=== PATIENT | female | born 1990 | race Caucasian/White ===

== ENCOUNTER 2020-08-21 20:15 | Emergency (ER) | payer OTHER, SELFPAY ==
[2020-08-21 20:22] VITALS: BP 110/78; PULSE 83; O2SAT 98
[2020-08-21 20:24] VITALS: BP 110/89; PULSE 101; RESP 19; TEMP 36.1; O2SAT 100; BMI 30.2
[2020-08-21 20:39] LABS: Glucose, Whole Blood 135 mg/dL (60-115)
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
--- NOTE | 2020-08-21 21:07 | ED.PSYCH ---
HPI - Psych General Chief Complaint: Psychiatric Symptoms Stated Complaint: CRISIS Time Seen by Provider: 08/21/20 23:17 Source: patient and EMS Mode of arrival: EMS Limitations: other ( Cognitive impairment) History of Present Illness HPI Narrative: 30-year-old female with past medical history of cognitive impairment, seizure disorder, psychiatric disorder presents from a retirement via EMS for evaluation. Patient has eloped from her home multiple times today, was seen at [facility] and had to N consult today. This is suspected to be behavioral, patient does not report suicidal ideation, homicidal ideation, and does not feel that she is in danger. She does not like her retirement, states that staff are mean to her, make fun of her name, call her names, and treat her poorly. She does not have any physical complaints at this time. MD complaint: feels depressed and anxiety Onset (ago): unknown Duration: intermittent History of same: Yes Relieving factors: none Context: significant life stressor Associated psychiatric symptoms: depression Associated symptoms: denies other symptoms Related Data Home Medications Medication Instructions Recorded Confirmed acetaminophen 650 mg PO Q4H PRN 08/21/20 08/21/20 albuterol sulfate [ProAir HFA] 2 puff INHALATION TID 08/21/20 08/21/20 atorvastatin 10 mg PO DAILY 08/21/20 08/21/20 clonazepam 0.5 mg PO BEDTIME 08/21/20 08/21/20 desmopressin 0.6 mg PO DAILY 08/21/20 08/21/20 divalproex 1,000 mg PO BEDTIME 08/21/20 08/21/20 divalproex 750 mg PO QAM 08/21/20 08/21/20 fluphenazine HCl 10 mg PO Q4H PRN 08/21/20 08/21/20 fluticasone propionate 1 spray INTRANASAL BID 08/21/20 08/21/20 fluticasone propionate [Flovent 2 puff INHALATION BID 08/21/20 08/21/20 HFA] folic acid 1 mg PO DAILY 08/21/20 08/21/20 loratadine 10 mg PO DAILY PRN 08/21/20 08/21/20 metformin 1 tab PO BID 08/21/20 08/21/20 olanzapine 10 mg PO BID 08/21/20 08/21/20 propranolol 1 tab PO BID 08/21/20 08/21/20 topiramate 100 mg PO BEDTIME 08/21/20 08/21/20 Allergies Allergy/AdvReac Type Severity Reaction Status Date / Time mushroom Allergy Unknown TURNS Unverified 11/10/19 17:38 ASHEN, FEET BREAK OUT (MUSHROOM FLAVOR) Seafood Allergy Mild RASH Uncoded 11/10/19 17:38 LOBSTER Allergy Unknown UNKNOWN Uncoded 11/10/19 17:38 Review of Systems Review of Systems: Constitutional: No Fever, No Chills ENT/Mouth: No Ear Pain, No Nasal Congestion, No sore throat Eyes: No Eye Pain, No Swelling, No Redness Cardiovascular: No Chest Pain, No SOB Respiratory: No Cough, No Sputum, No Dyspnea Gastrointestinal: No Nausea, No Vomiting, No Diarrhea, No Hematochezia, No Melena Genitourinary: No Dysuria, No Urinary Frequency, No Hematuria Musculoskeletal: No Myalgias Skin: No Skin Lesions, No rash Neuro: No Weakness, No Numbness, No Paresthesias, No Dizziness, No Headache Psych: positive Anxiety, positive Depression, No SI/HI Heme/Lymph: No Lymphadenopathy Endocrine: No Polyuria, No Polydipsia Yes all other systems are reviewed and are negative [facility] Past Medical History Attestation statement: The following information was validated with the patient. Source: old records reviewed Social History Social History Advance Directives: No Advance Directives Information Provided: No Patient : No Physical Exam Vital Signs: Vital Signs: Last Vital Signs Temp 97 F 08/21/20 20:24 Pulse 94 08/21/20 23:47 Resp 19 08/21/20 20:24 BP 114/76 08/21/20 23:47 Pulse Ox 100 08/21/20 20:24 Body Mass Index 30.2 Appearance: Alert. Oriented X to self and situation. Cognitive impairment. No acute distress. Eyes: Pupils equal, round and reactive to light. ENT: Pharynx normal. Neck: Normal inspection. Neck supple. CVS: Normal heart rate and rhythm. Pulses normal. Respiratory: No respiratory distress. Breath sounds normal. Abdomen: Soft and nontender. Skin: Skin warm and dry. Normal skin color. Normal skin turgor. Extremities: No lower extremity edema. Neuro: No motor deficit. No sensory deficit. Course Course Course Narrative: 30-year-old female presents from retirement, was seen by [facility] twice a day, does not like her retirement and has eloped multiple times. She does have a prior history of behavior like this, states that staff are bullying her, calling her names, and making her feel uncomfortable. Plan of care to be HN consult. Physician observation started at this time. MDM - Psych Differential Diagnosis Differential diagnosis: Likely acute psychosis, depression, acute anxiety and mood disorder Medical Records Attestation: I reviewed the patient's medical records. Lab Data Attestation: I reviewed the patient's lab results. Result diagrams: 08/21/20 23:24 08/21/20 23:24 Labs: Lab Results 08/21/20 08/21/20 08/21/20 Range/Units 20:34 20:48 20:48 WBC (4.8-10.8) X10*3/uL RBC (4.20-5.50) X10*6/uL Hgb (12.0-16.0) g/dl Hct (37-47) % MCV (80-98) fL MCH (27.0-33.0) pg MCHC (31.0-35.0) g/dl RDW (11.0-16.0) % Plt Count (160-400) X10*3/uL MPV (9.4-12.3) fL Immature Gran % (Auto) (0.0-0.4) % Neut % (Auto) (45-73) % Lymph % (Auto) (20-40) % [place] % (Auto) (2-11) % Eos % (Auto) (0-4) % Baso % (Auto) (0-2) % Lymph # (Auto) (1.2-4.9) X10*3/uL [place] # (Auto) (0.1-1.2) X10*3/uL Eos # (Auto) (0.0-0.4) X10*3/uL Baso # (Auto) (0.0-0.2) X10*3/uL Abs Immat Gran (auto) (0.00-0.03) X10*3/uL Absolute Neuts (auto) (2.0-8.3) X10*3/uL Absolute Nucleated RBC (0.0-0.012) X10*3/uL Nucleated RBC % (auto) (0.0-0.2) /100WBC Sodium (135-145) mmol/L Potassium (3.3-5.1) mmol/L Chloride (96-108) mmol/L Carbon Dioxide (22-29) mmol/L Anion Gap (12-20) BUN (9-16) mg/dL Creatinine (0.5-1.4) mg/dL Estim Creat Clear Calc Estimated GFR POC Glucose 135 H (60-115) mg/dL Random Glucose (60-115) mg/dL Calcium (8.4-10.2) mg/dL Urine Color Urine Appearance Urine pH (5.0-8.0) Ur Specific [place] (1.005-1.025) Urine Protein (NEG-TRACE) MG/DL Urine Glucose (UA) (NEG) MG/DL Urine Ketones (NEG) MG/DL Urine Blood (NEG) Urine Nitrite (NEG) Ur Leukocyte Esterase (NEG) Urine Test (NEGATIVE) Urine Opiates Screen Not Detected (Not Detect) Ur Barbiturates Screen Not Detected (Not Detect) Valproic Acid (50.0-100.0) mcg/mL Ur Phencyclidine Scrn Not Detected (Not Detect) Ur Amphetamines Screen Not Detected (Not Detect) U Benzodiazepines Scrn Not Detected (Not Detect) Urine Cocaine Screen Not Detected (Not Detect) U Marijuana (THC) Screen Not Detected (Not Detect) COVID-19 (SANDRO) Negative (Negative) COVID-19 Clin Com See Note 08/21/20 08/21/20 08/21/20 Range/Units 20:48 20:48 23:24 WBC 12.3 H (4.8-10.8) X10*3/uL RBC 4.25 (4.20-5.50) X10*6/uL Hgb 13.7 (12.0-16.0) g/dl Hct 41.4 (37-47) % MCV 97.4 (80-98) fL MCH 32.2 (27.0-33.0) pg MCHC 33.1 (31.0-35.0) g/dl RDW 12.1 (11.0-16.0) % Plt Count 229 (160-400) X10*3/uL MPV 10.1 (9.4-12.3) fL Immature Gran % (Auto) 0.9 H (0.0-0.4) % Neut % (Auto) 67.4 (45-73) % Lymph % (Auto) 22.0 (20-40) % [place] % (Auto) 8.0 (2-11) % Eos % (Auto) 1.4 (0-4) % Baso % (Auto) 0.3 (0-2) % Lymph # (Auto) 2.7 (1.2-4.9) X10*3/uL [place] # (Auto) 1.0 (0.1-1.2) X10*3/uL Eos # (Auto) 0.2 (0.0-0.4) X10*3/uL Baso # (Auto) 0.0 (0.0-0.2) X10*3/uL Abs Immat Gran (auto) 0.11 H (0.00-0.03) X10*3/uL Absolute Neuts (auto) 8.3 (2.0-8.3) X10*3/uL Absolute Nucleated RBC 0.000 (0.0-0.012) X10*3/uL Nucleated RBC % (auto) 0.0 (0.0-0.2) /100WBC Sodium (135-145) mmol/L Potassium (3.3-5.1) mmol/L Chloride (96-108) mmol/L Carbon Dioxide (22-29) mmol/L Anion Gap (12-20) BUN (9-16) mg/dL Creatinine (0.5-1.4) mg/dL Estim Creat Clear Calc Estimated GFR POC Glucose (60-115) mg/dL Random Glucose (60-115) mg/dL Calcium (8.4-10.2) mg/dL Urine Color YELLOW Urine Appearance CLEAR Urine pH 6.0 (5.0-8.0) Ur Specific [place] <= 1.005 (1.005-1.025) Urine Protein NEG (NEG-TRACE) MG/DL Urine Glucose (UA) NEG (NEG) MG/DL Urine Ketones NEG (NEG) MG/DL Urine Blood NEG (NEG) Urine Nitrite NEG (NEG) Ur Leukocyte Esterase NEG (NEG) Urine Test NEGATIVE (NEGATIVE) Urine Opiates Screen (Not Detect) Ur Barbiturates Screen (Not Detect) Valproic Acid (50.0-100.0) mcg/mL Ur Phencyclidine Scrn (Not Detect) Ur Amphetamines Screen (Not Detect) U Benzodiazepines Scrn (Not Detect) Urine Cocaine Screen (Not Detect) U Marijuana (THC) Screen (Not Detect) COVID-19 (SANDRO) (Negative) COVID-19 Clin Com 08/21/20 08/21/20 Range/Units 23:24 23:24 WBC (4.8-10.8) X10*3/uL RBC (4.20-5.50) X10*6/uL Hgb (12.0-16.0) g/dl Hct (37-47) % MCV (80-98) fL MCH (27.0-33.0) pg MCHC (31.0-35.0) g/dl RDW (11.0-16.0) % Plt Count (160-400) X10*3/uL MPV (9.4-12.3) fL Immature Gran % (Auto) (0.0-0.4) % Neut % (Auto) (45-73) % Lymph % (Auto) (20-40) % [place] % (Auto) (2-11) % Eos % (Auto) (0-4) % Baso % (Auto) (0-2) % Lymph # (Auto) (1.2-4.9) X10*3/uL [place] # (Auto) (0.1-1.2) X10*3/uL Eos # (Auto) (0.0-0.4) X10*3/uL Baso # (Auto) (0.0-0.2) X10*3/uL Abs Immat Gran (auto) (0.00-0.03) X10*3/uL Absolute Neuts (auto) (2.0-8.3) X10*3/uL Absolute Nucleated RBC (0.0-0.012) X10*3/uL Nucleated RBC % (auto) (0.0-0.2) /100WBC Sodium 145 (135-145) mmol/L Potassium 4.1 (3.3-5.1) mmol/L Chloride 110 H (96-108) mmol/L Carbon Dioxide 28 (22-29) mmol/L Anion Gap 11 L (12-20) BUN 15 (9-16) mg/dL Creatinine 0.97 (0.5-1.4) mg/dL Estim Creat Clear Calc 85.1 Estimated GFR > 60 POC Glucose (60-115) mg/dL Random Glucose 159 H (60-115) mg/dL Calcium 10.3 H (8.4-10.2) mg/dL Urine Color Urine Appearance Urine pH (5.0-8.0) Ur Specific [place] (1.005-1.025) Urine Protein (NEG-TRACE) MG/DL Urine Glucose (UA) (NEG) MG/DL Urine Ketones (NEG) MG/DL Urine Blood (NEG) Urine Nitrite (NEG) Ur Leukocyte Esterase (NEG) Urine Test (NEGATIVE) Urine Opiates Screen (Not Detect) Ur Barbiturates Screen (Not Detect) Valproic Acid 47.1 L (50.0-100.0) mcg/mL Ur Phencyclidine Scrn (Not Detect) Ur Amphetamines Screen (Not Detect) U Benzodiazepines Scrn (Not Detect) Urine Cocaine Screen (Not Detect) U Marijuana (THC) Screen (Not Detect) COVID-19 (SANDRO) (Negative) COVID-19 Clin Com Discharge Plan Discharge Prescriptions: No Action acetaminophen 325 mg tablet 650 mg PO Q4H PRN (Reason: Pain) RF: 0 divalproex 250 mg tablet,delayed release (DR/EC) 750 mg PO QAM RF: 0 atorvastatin 10 mg tablet 10 mg PO DAILY RF: 0 fluphenazine HCl 10 mg tablet 10 mg PO Q4H PRN (Reason: Agitation) RF: 0 desmopressin 0.2 mg tablet 0.6 mg PO DAILY RF: 0 olanzapine 10 mg tablet 10 mg PO BID RF: 0 divalproex 500 mg tablet,delayed release (DR/EC) 1,000 mg PO BEDTIME RF: 0 metformin 1,000 mg tablet 1 tab PO BID RF: 0 Flovent HFA 44 mcg/actuation HFA aerosol inhaler 2 puff inhalation BID RF: 0 folic acid 1 mg tablet 1 mg PO DAILY RF: 0 topiramate 100 mg tablet 100 mg PO BEDTIME RF: 0 loratadine 10 mg tablet 10 mg PO DAILY PRN (Reason: Allergic Symptoms) RF: 0 clonazepam 0.5 mg tablet 0.5 mg PO BEDTIME RF: 0 propranolol 60 mg tablet 1 tab PO BID RF: 0 fluticasone propionate 50 mcg/actuation spray,suspension 1 spray intranasal BID RF: 0 albuterol sulfate [ProAir HFA] 90 mcg/actuation HFA aerosol inhaler 2 puff inhalation TID RF: 0
[2020-08-21 21:18] LABS: COVID-19 Test Negative (Negative); IDNOW Serial# 08D9AD1C
[2020-08-21 21:31] LABS: Amphetamine Screen Urine Not Detected (Not Detect); Barbiturates, Urine Not Detected (Not Detect); Benzodiazepines Screen Urine Not Detected (Not Detect); Cannabinoid Screen Urine Not Detected (Not Detect); Cocaine Screen Urine Not Detected (Not Detect); Opiate Screen Urine Not Detected (Not Detect); Phencyclidine Screen Urine Not Detected (Not Detect)
[2020-08-21 22:51] LABS: Appearance Urine CLEAR; Color Urine YELLOW; Glucose Urine UA NEG (NEG); Leukocyte Esterase Urine NEG (NEG); Nitrite Urine NEG (NEG); Specific Gravity - Urine <= 1.005 (1.005-1.025); Urine Blood NEG (NEG); Urine Ketones NEG (NEG); Urine Protein NEG (NEG-TRACE)
[2020-08-21 22:53] LABS: UPreg QC Valid YES; Urine Pregnancy NEGATIVE (NEGATIVE)
[2020-08-21 23:31] LABS: Basophils Percent Auto 0.3 % (0-2); Eosinophils Absolute Auto 0.2 X10*3/uL (0.0-0.4); Eosinophils Percent Auto 1.4 % (0-4); Hematocrit 41.4 % (37-47); Hemoglobin 13.7 g/dl (12.0-16.0); Imm Gran Abs Auto 0.11 X10*3/uL (0.00-0.03); Imm Gran Pct Auto 0.9 % (0.0-0.4); Lymphocytes Absolute Auto 2.7 X10*3/uL (1.2-4.9); Mean Corpuscular HGB Conc 33.1 g/dl (31.0-35.0); Mean Corpuscular Hemoglobin 32.2 pg (27.0-33.0); Mean Corpuscular Volume 97.4 fL (80-98); Mean Platelet Volume 10.1 fL (9.4-12.3); Neutrophils Absolute Auto 8.3 X10*3/uL (2.0-8.3); Neutrophils Percent Auto 67.4 % (45-73); Platelet Count 229 X10*3/uL (160-400); Red Blood Count 4.25 X10*6/uL (4.20-5.50); Red Cell Distribution Width 12.1 % (11.0-16.0); White Blood Count 12.3 X10*3/uL (4.8-10.8)
[2020-08-21 23:32] LABS: MANUAL DIFF FLAG NO
[2020-08-21 23:47] VITALS: BP 114/76; PULSE 94
[2020-08-21] MEDS: Divalproex Sodium 500 MG TABLET.DR 1000 MG PO (23:47)
[2020-08-21] MEDS: Topiramate 100 MG TABLET PO (23:47)
[2020-08-21] MEDS: Propranolol HCL 20 MG TABLET 60 MG PO (23:47)
[2020-08-21] MEDS: OLANZapine 10 MG TABLET PO (23:47)
[2020-08-21] MEDS: clonazePAM 0.5 MG TABLET PO (23:47)
[2020-08-21 23:59] LABS: Anion Gap 11 (12-20); Blood Urea Nitrogen 15 mg/dL (9-16); Calcium 10.3 mg/dL (8.4-10.2); Carbon Dioxide 28 mmol/L (22-29); Chloride 110 mmol/L (96-108); Creatinine Clr Calc Pharmacy 85.1; Estimated Glomerular Filt Rate > 60; Glucose Random 159 mg/dL (60-115); Potassium 4.1 mmol/L (3.3-5.1); Sodium 145 mmol/L (135-145)
[2020-08-22 00:04] LABS: Valproate 47.1 mcg/mL (50.0-100.0)
--- NOTE | 2020-08-22 01:09 | PC.NURSE ---
Patient appears sleeping at this time, no distress observed/reported, patient was compliant with her HS PO medication, patient was made aware of her depakote level which was 47.1, N referral completed via smart-sheet, called and spoke with Deysi confirmed receipt of referral, patient will be seen in the morning, will continue to monitor.
[2020-08-22 01:23] VITALS: BP 114/76; PULSE 94; RESP 16; TEMP 36.6; O2SAT 100
--- NOTE | 2020-08-22 05:35 | PC.NURSE ---
Patient slept through the night, patient was up x 2 for bathroom use and back, patient was incontinence of bladder x2, patient will be seeing by N in the morning, will continue to monitor.
[2020-08-22 07:17] LABS: Glucose, Whole Blood 97 mg/dL (60-115)
[2020-08-22 07:30] VITALS: TEMP 36.2
[2020-08-22 07:59] VITALS: BP 102/45; PULSE 74; RESP 16; TEMP 36.2; O2SAT 97
--- NOTE | 2020-08-22 08:05 | PC.NURSE ---
PT SHOWERED. STAYING OUT IN COMMON AREA. AWAITING BHN CONSULT
[2020-08-22 08:36] VITALS: BP 102/45; PULSE 74
[2020-08-22] MEDS: OLANZapine 10 MG TABLET PO ×2 (08:36→21:31)
[2020-08-22] MEDS: Propranolol HCL 20 MG TABLET 60 MG PO ×2 (08:36→21:34)
[2020-08-22] MEDS: Atorvastatin Calcium 10 MG TABLET PO (08:37)
[2020-08-22] MEDS: polyethylene glycoL 3350 17 GM POWD.PACK PO (08:37)
[2020-08-22] MEDS: Folic Acid 1 MG TABLET PO (08:37)
[2020-08-22] MEDS: metFORMIN HCl 1,000 MG TABLET 1000 MG PO ×2 (08:37→19:32)
[2020-08-22] MEDS: Divalproex Sodium 250 MG TABLET.DR 750 MG PO (08:37)
[2020-08-22] MEDS: Albuterol Sulfate 90 MCG 8 GM INHALER 2 PUFF INHALE ×3 (08:38→21:41)
[2020-08-22] MEDS: Fluticasone Propionate Nasal 16 GM SPRAY 1 SPRAY NOSTRIL-B ×2 (09:12→21:41)
[2020-08-22] MEDS: Fluticasone Propionate 100 MCG BLST.W.DEV 1 PUFF INHALE (09:12)
[2020-08-22] MEDS: Desmopressin Acetate 0.2 MG TABLET 0.6 MG PO (09:12)
--- NOTE | 2020-08-22 11:41 | PC.NURSE ---
Report received. Pt currently watching TV in the common area. No complaints at this time, calm, waiting to be seen by N
--- NOTE | 2020-08-22 12:42 | PC.NURSE ---
Spoke with Vernell at [facility]. A clinician should be available to assess pt between 1400 and 1500.
[2020-08-22] MEDS: Acetaminophen 325 MG TABLET 650 MG PO (17:49)
[2020-08-22 18:24] LABS: Glucose, Whole Blood 147 mg/dL (60-115)
[2020-08-22] MEDS: Topiramate 100 MG TABLET PO (21:31)
[2020-08-22] MEDS: clonazePAM 0.5 MG TABLET PO (21:31)
[2020-08-22] MEDS: Divalproex Sodium 500 MG TABLET.DR 1000 MG PO (21:31)
[2020-08-22 21:34] VITALS: BP 115/77; PULSE 79
--- NOTE | 2020-08-22 21:34 | MHC.CARE ---
JAQUANN came to evaluate pt. Pt will remain in the ED for an JAMEEL F/U. NIKKI was unable to get a hold of DDS at this time.
--- NOTE | 2020-08-22 22:00 | PC.NURSE ---
Patient compliant with her HS PO medication, intermittently reporting that she does't want to go back to her residential if we discharge her she will come back, NIKKI met with her for assessment, disposition follow up in the morning because clinician couldn't get hold of her DDS staff, patient made aware seems happy, VSS, appetite good, elimination intact, will continue to monitor.
--- NOTE | 2020-08-23 06:23 | PC.NURSE ---
Patient slept through the night, patient was up x2 for bathroom use and back, VSS, no distress observed/reported, no behavioral concerns, patient is JAMEEL f/u with BHN this morning, will continue to monitor.
[2020-08-23 06:28] VITALS: BP 104/68; PULSE 72; RESP 16; TEMP 36.6; O2SAT 97
[2020-08-23 07:16] LABS: Glucose, Whole Blood 139 mg/dL (60-115)
--- NOTE | 2020-08-23 07:17 | PC.NURSE ---
patient appears to remain at rest at present, respirations are even and unlabored, patient appears in no distress.
[2020-08-23 07:40] VITALS: BP 85/45; PULSE 69; RESP 16; TEMP 36.6; O2SAT 97
[2020-08-23 08:48] VITALS: BP 109/76; PULSE 85; RESP 14; O2SAT 95
[2020-08-23] MEDS: Fluticasone Propionate 100 MCG BLST.W.DEV 1 PUFF INHALE (09:41)
[2020-08-23] MEDS: metFORMIN HCl 1,000 MG TABLET 1000 MG PO ×2 (09:41→18:06)
[2020-08-23] MEDS: Atorvastatin Calcium 10 MG TABLET PO (09:42)
[2020-08-23] MEDS: Desmopressin Acetate 0.2 MG TABLET 0.6 MG PO (09:42)
[2020-08-23] MEDS: Albuterol Sulfate 90 MCG 8 GM INHALER 2 PUFF INHALE ×3 (09:42→19:57)
[2020-08-23 09:43] VITALS: BP 109/76; PULSE 85
[2020-08-23] MEDS: Fluticasone Propionate Nasal 16 GM SPRAY 1 SPRAY NOSTRIL-B ×2 (09:43→19:57)
[2020-08-23] MEDS: OLANZapine 10 MG TABLET PO ×2 (09:43→19:41)
[2020-08-23] MEDS: Propranolol HCL 20 MG TABLET 60 MG PO ×2 (09:43→19:42)
[2020-08-23] MEDS: Folic Acid 1 MG TABLET PO (09:43)
[2020-08-23] MEDS: Divalproex Sodium 250 MG TABLET.DR 750 MG PO (09:43)
[2020-08-23] MEDS: Acetaminophen 325 MG TABLET 650 MG PO (15:12)
[2020-08-23] MEDS: fluPHENAZine HCl 5 MG TABLET 10 MG PO ×2 (15:25→19:41)
[2020-08-23 17:13] LABS: Glucose, Whole Blood 136 mg/dL (60-115)
[2020-08-23] MEDS: Topiramate 100 MG TABLET PO (19:41)
[2020-08-23 19:42] VITALS: BP 118/91; PULSE 82
[2020-08-23] MEDS: Divalproex Sodium 500 MG TABLET.DR 1000 MG PO (19:42)
--- NOTE | 2020-08-23 19:53 | PC.NURSE ---
BHN came here for reassessment, were unable to get hold DDS staff, disposition is JAMEEL f/u in the morning, patient reported [facility] wanted her HS medication administered early/provider notified/medication administered 20 minutes earlier than scheduled time, will continue to monitor.
[2020-08-23] MEDS: clonazePAM 0.5 MG TABLET PO (20:00)
[2020-08-23] MEDS: diphenhydrAMINE HCL 25 MG TABLET 50 MG PO (22:10)
[2020-08-24 06:14] VITALS: BP 102/64; PULSE 66; RESP 16; TEMP 36.7; O2SAT 96
--- NOTE | 2020-08-24 06:23 | PC.NURSE ---
Patient slept through the night, just woke up and had bladder incontinence episode, bed and body fully saturated with urine, currently in shower, bed completely changed, patient is calm and quiet, in good behavioral control, disposition is F/U with BHN, will continue to monitor.
--- NOTE | 2020-08-24 07:23 | PC.NURSE ---
patient was up and about in milieu fairly early, patient expressed some displeasure i believe at the discussion of potential dc. patient expressed want to stay here . t/w explained this hospital might not be the outcome.
[2020-08-24 07:45] VITALS: BP 105/72; PULSE 75; RESP 17; TEMP 36.1
[2020-08-24] MEDS: Albuterol Sulfate 90 MCG 8 GM INHALER 2 PUFF INHALE ×3 (08:17→20:52)
[2020-08-24 08:18] VITALS: BP 105/72; PULSE 75
[2020-08-24] MEDS: Fluticasone Propionate Nasal 16 GM SPRAY 1 SPRAY NOSTRIL-B ×2 (08:18→20:52)
[2020-08-24] MEDS: metFORMIN HCl 1,000 MG TABLET 1000 MG PO ×2 (08:18→17:02)
[2020-08-24] MEDS: Divalproex Sodium 250 MG TABLET.DR 750 MG PO (08:18)
[2020-08-24] MEDS: OLANZapine 10 MG TABLET PO ×2 (08:18→20:49)
[2020-08-24] MEDS: Folic Acid 1 MG TABLET PO (08:18)
[2020-08-24] MEDS: Propranolol HCL 20 MG TABLET 60 MG PO ×2 (08:18→20:49)
[2020-08-24] MEDS: Fluticasone Propionate 100 MCG BLST.W.DEV 1 PUFF INHALE (08:18)
[2020-08-24] MEDS: fluPHENAZine HCl 5 MG TABLET 10 MG PO ×2 (09:04→13:30)
[2020-08-24] MEDS: Atorvastatin Calcium 10 MG TABLET PO (09:26)
[2020-08-24] MEDS: Desmopressin Acetate 0.2 MG TABLET 0.6 MG PO (09:51)
[2020-08-24] MEDS: Acetaminophen 325 MG TABLET 650 MG PO ×2 (11:23→15:43)
--- NOTE | 2020-08-24 16:50 | PC.NURSE ---
since about 3 pm patient has had some intrusive behaviour where patient speaks at staff saying she thinks staff knows of her dc plan or time and [id number]
--- NOTE | 2020-08-24 19:52 | MHC.CARE ---
CARE team contacted [facility], systems applications programming lead at [phone]. [facility] reported they are open to taking her back however report that she will regress because she typically will harm herself to get back to the hospital. CARE team and pod nurse are facilitating for pt to return back to the fci as BHN's disposition is D/C.
[2020-08-24 20:16] VITALS: BP 114/74; PULSE 84; TEMP 36; O2SAT 99
[2020-08-24] MEDS: clonazePAM 0.5 MG TABLET PO ×2 (20:45→20:49)
[2020-08-24] MEDS: Topiramate 100 MG TABLET PO ×2 (20:45→20:49)
[2020-08-24] MEDS: clonazePAM 1 MG TABLET PO ×2 (20:45→20:49)
[2020-08-24] MEDS: Divalproex Sodium 500 MG TABLET.DR 1000 MG PO ×2 (20:45→20:49)
[2020-08-24 20:49] VITALS: BP 114/74; PULSE 77
--- NOTE | 2020-08-24 21:32 | PC.NURSE ---
Followed up with [facility] of patient's disposition, per [facility] patient's disposition is d/c back to residential, notified provider however per provider [facility] never updated patient's disposition, residential called, spoke with Za Aguiar, reported they were waiting for patient since 1500 and no one called them, care team made aware, charge nurse notified, plan is to d/c patient to residential, patient made aware, was not happy, will continue to monitor.
== END 2020-08-24 22:52 | disposition home or self-care (01) ==
PROVIDERS: Nurse Practitioner Family; Emergency Provider Internal Medicine
DX: F41.9 Anxiety disorder, unspecified (principal); F32.9 Major depressive disorder, single episode, unspecified; I95.9 Hypotension, unspecified; G40.909 Epilepsy, unspecified, not intractable, without status epilepticus; Z79.899 Other long term (current) drug therapy; Z20.822 Contact with and (suspected) exposure to COVID-19
CPT/HCPCS: 36415; 80048; 80164; 80307; 81003; 81025; 82947; 85025; 87635; 99285; Q0163

== ENCOUNTER 2020-10-01 03:53 | Emergency (ER) | payer OTHER, SELFPAY ==
--- NOTE | 2020-10-01 03:57 | ED.PSYCH ---
HPI - Psych General Chief Complaint: General Medical Stated Complaint: HI Time Seen by Provider: 10/01/20 03:57 Source: patient and EMS Mode of arrival: EMS Limitations: no limitations History of Present Illness HPI Narrative: doesn't want to go to the skilled nursing was just seen at [facility] for the same. States the staff make fun of her and she doesn't want to live there anymore. Denies SI/HI states she wouldn't hurt anyone at the skilled nursing MD complaint: feels depressed Onset (ago): week(s) Duration: constant History of same: Yes Relieving factors: none Exacerbating factors: other (skilled nursing environment) Associated psychiatric symptoms: depression Associated symptoms: denies other symptoms Treatments prior to arrival: none Related Data Home Medications Medication Instructions Recorded Confirmed acetaminophen 325 mg tablet 650 mg PO Q4H PRN 08/21/20 08/21/20 albuterol sulfate 90 mcg/actuation 2 puff INHALATION TID 08/21/20 08/21/20 aerosol inhaler (ProAir HFA) atorvastatin 10 mg tablet 10 mg PO DAILY 08/21/20 08/21/20 clonazepam 0.5 mg tablet 0.5 mg PO BEDTIME 08/21/20 08/21/20 desmopressin 0.2 mg tablet 0.6 mg PO DAILY 08/21/20 08/21/20 divalproex 250 mg tablet,delayed 750 mg PO QAM 08/21/20 08/21/20 release divalproex 500 mg tablet,delayed 1,000 mg PO BEDTIME 08/21/20 08/21/20 release fluphenazine HCl 10 mg tablet 10 mg PO Q4H PRN 08/21/20 08/21/20 fluticasone propionate 44 2 puff INHALATION BID 08/21/20 08/21/20 mcg/actuation HFA aerosol inhaler (Flovent HFA) fluticasone propionate 50 1 spray INTRANASAL BID 08/21/20 08/21/20 mcg/actuation nasal spray,suspension folic acid 1 mg tablet 1 mg PO DAILY 08/21/20 08/21/20 loratadine 10 mg tablet 10 mg PO DAILY PRN 08/21/20 08/21/20 metformin 1,000 mg tablet 1 tab PO BID 08/21/20 08/21/20 olanzapine 10 mg tablet 10 mg PO BID 08/21/20 08/21/20 propranolol 60 mg tablet 1 tab PO BID 08/21/20 08/21/20 topiramate 100 mg tablet 100 mg PO BEDTIME 08/21/20 08/21/20 Allergies Allergy/AdvReac Type Severity Reaction Status Date / Time mushroom Allergy Unknown TURNS Unverified 11/10/19 17:38 ASHEN, FEET BREAK OUT (MUSHROOM FLAVOR) Seafood Allergy Mild RASH Uncoded 11/10/19 17:38 LOBSTER Allergy Unknown UNKNOWN Uncoded 11/10/19 17:38 Review of Systems Review of Systems: Constitutional : No Fever, No Chills ENT/Mouth : No Ear Pain, No Nasal Congestion, No sore throat Eyes: No Eye Pain, No Swelling, No Redness Cardiovascular : No Chest Pain, No SOB Respiratory : No Cough, No Sputum, No Dyspnea Gastrointestinal : No Nausea, No Vomiting, No Diarrhea, No Hematochezia, No Melena Genitourinary : No Dysuria, No Urinary Frequency, No Hematuria Musculoskeletal : No Myalgias Skin : No Skin Lesions, No rash Neuro : No Weakness, No Numbness, No Paresthesias, No Dizziness, No Headache Psych : positive Anxiety, positive Depression, no SI/HI Heme/Lymph: No Lymphadenopathy Endocrine : No Polyuria, No Polydipsia All other systems reviewed and are negative [facility] Past Medical History Attestation statement: The following information was validated with the patient. Medical History Asthma Autism Bipolar 1 disorder Diabetes Hyperlipidemia Mental health disorder Schizophrenia Social History Social History (Updated 10/01/20 @ 04:10 by Mckenna Oneil DO) Patient Tobacco Use Status: Never used Tobacco Use of substances other than those prescribed or required for medical reasons: No Advance Directives: No Patient : No Physical Exam Vital Signs: Vital Signs: Last Vital Signs Temp 98.1 F 10/01/20 04:08 Pulse 88 10/01/20 04:08 Resp 16 10/01/20 04:08 BP 110/79 10/01/20 04:08 Pulse Ox 97 10/01/20 04:08 Body Mass Index 28.4 Appearance: Alert. Oriented X3. No acute distress. Eyes: Pupils equal, round and reactive to light. ENT: Pharynx normal. Neck: Normal inspection. Neck supple. CVS: Normal heart rate and rhythm. Pulses normal. Respiratory: No respiratory distress. Breath sounds normal. Abdomen: Soft and nontender. Skin: Skin warm and dry. Normal skin color. Normal skin turgor. Extremities: No lower extremity edema. No calf ttp Neuro: Oriented X 3. No motor deficit. No sensory deficit. Psych: no SI/HI. pos anxiety/depression Course Course Course Narrative: signed out pending CARE team input and safe DC MDM - Psych MDM Narrative Medical decision making narrative: 30 yo female with schizophrenia/bipolar comes in with c/o not liking her skilled nursing she notes that she doesn't want to live there and they make fun of her - no SI/HI, will involve CARE team for safe discharge Discharge Plan Discharge Clinical Impression: Anxiety Instructions: Anxiety (ED) Additional Instructions: return to ED for any worsening symptoms or concerns Prescriptions: No Action acetaminophen 325 mg tablet 650 mg PO Q4H PRN (Reason: Pain) RF: 0 divalproex 250 mg tablet,delayed release (DR/EC) 750 mg PO QAM RF: 0 atorvastatin 10 mg tablet 10 mg PO DAILY RF: 0 fluphenazine HCl 10 mg tablet 10 mg PO Q4H PRN (Reason: Agitation) RF: 0 desmopressin 0.2 mg tablet 0.6 mg PO DAILY RF: 0 olanzapine 10 mg tablet 10 mg PO BID RF: 0 divalproex 500 mg tablet,delayed release (DR/EC) 1,000 mg PO BEDTIME RF: 0 metformin 1,000 mg tablet 1 tab PO BID RF: 0 Flovent HFA 44 mcg/actuation HFA aerosol inhaler 2 puff inhalation BID RF: 0 folic acid 1 mg tablet 1 mg PO DAILY RF: 0 topiramate 100 mg tablet 100 mg PO BEDTIME RF: 0 loratadine 10 mg tablet 10 mg PO DAILY PRN (Reason: Allergic Symptoms) RF: 0 clonazepam 0.5 mg tablet 0.5 mg PO BEDTIME RF: 0 propranolol 60 mg tablet 1 tab PO BID RF: 0 fluticasone propionate 50 mcg/actuation spray,suspension 1 spray intranasal BID RF: 0 albuterol sulfate [ProAir HFA] 90 mcg/actuation HFA aerosol inhaler 2 puff inhalation TID RF: 0
[2020-10-01 04:08] VITALS: BP 110/79; PULSE 88; RESP 16; TEMP 36.7; O2SAT 97; BMI 28.4
--- NOTE | 2020-10-01 04:47 | PC.NURSE ---
PT TO [facility] AMBULANCE AFTER REFUSING TO GO TO SENIOR LIVING. PT ARRIVES ALERT, RESPIRATIONS EASY N/L. SKIN W/D. AWAITING FOR FURTHER ORDERS. WILL CONTINUE TO MONITOR PT.
[2020-10-01] MEDS: Acetaminophen 325 MG TABLET 650 MG PO (05:33)
[2020-10-01 09:02] LABS: MANUAL DIFF FLAG NO
--- NOTE | 2020-10-01 09:02 | PC.NURSE ---
eri (care team) is at bedside with pt, pt aware of plan of care
[2020-10-01 09:04] LABS: Appearance Urine CLEAR; Color Urine YELLOW; Glucose Urine UA NEG (NEG); Leukocyte Esterase Urine NEG (NEG); Nitrite Urine NEG (NEG); PH 7.5 (5.0-8.0); Urine Blood NEG (NEG); Urine Ketones NEG (NEG); Urine Protein NEG (NEG-TRACE)
[2020-10-01 09:05] LABS: Basophils Percent Auto 0.3 % (0-2); Eosinophils Absolute Auto 0.3 X10*3/uL (0.0-0.4); Eosinophils Percent Auto 3.6 % (0-4); Imm Gran Abs Auto 0.12 X10*3/uL (0.00-0.03); Imm Gran Pct Auto 1.3 % (0.0-0.4); Lymphocytes Percent Auto 33.9 % (20-40); Mean Corpuscular HGB Conc 34.2 g/dl (31.0-35.0); Mean Corpuscular Hemoglobin 32.7 pg (27.0-33.0); Mean Corpuscular Volume 95.7 fL (80-98); Mean Platelet Volume 10.3 fL (9.4-12.3); Monocytes Absolute Auto 0.9 X10*3/uL (0.1-1.2); Monocytes Percent Auto 9.9 % (2-11); Neutrophils Absolute Auto 4.6 X10*3/uL (2.0-8.3); Platelet Count 266 X10*3/uL (160-400); Red Blood Count 3.97 X10*6/uL (4.20-5.50); Red Cell Distribution Width 11.9 % (11.0-16.0)
--- NOTE | 2020-10-01 09:14 | MHC.CARE ---
Addendum entered by Tena Bob LCSW 10/01/20 11:28: Plan for PT to be assessed by [facility] Crisis Original Note: CARE Team met with Pt who is declining to return to her fci. CARE Team explained the limitations of changing residences while in the ED. CARE Team encouraged Pt to speak with her employment evaluator/case manager and fci staff to address her concerns.
[2020-10-01 09:32] LABS: Ethanol < 10 mg/dL
[2020-10-01 09:32] LABS: Amphetamine Screen Urine Not Detected (Not Detect); Barbiturates, Urine Not Detected (Not Detect); Benzodiazepines Screen Urine Not Detected (Not Detect); Cannabinoid Screen Urine Not Detected (Not Detect); Cocaine Screen Urine Not Detected (Not Detect); Opiate Screen Urine Not Detected (Not Detect); Phencyclidine Screen Urine Not Detected (Not Detect)
[2020-10-01 09:38] LABS: Alanine Aminotransferase 12 U/L (0-31); Albumin Level 3.5 g/dL (3.5-5.0); Alkaline Phosphatase 57 U/L (39-117); Anion Gap 11 (12-20); Aspartate Amino Transferase 12 U/L (5-31); Bilirubin Total 0.4 mg/dL (0.0-1.0); Blood Urea Nitrogen 8 mg/dL (9-16); Calcium 9.5 mg/dL (8.4-10.2); Carbon Dioxide 25 mmol/L (22-29); Chloride 105 mmol/L (96-108); Creatinine Clr Calc Pharmacy 113.3; Estimated Glomerular Filt Rate > 60; Glucose Random 102 mg/dL (60-115); Magnesium 1.4 mg/dL (1.6-2.6); Potassium 4.1 mmol/L (3.3-5.1); Sodium 137 mmol/L (135-145); Total Protein 6.2 g/dL (6.5-8.0)
[2020-10-01 09:41] LABS: HCG Quantitative < 2 mIU/mL
[2020-10-01 09:44] VITALS: BP 133/60; PULSE 77; RESP 18; TEMP 37; O2SAT 97
[2020-10-01] MEDS: Magnesium Oxide 400 MG TABLET 800 MG PO (10:33)
[2020-10-01 11:57] LABS: Glucose, Whole Blood 115 mg/dL (60-115)
--- NOTE | 2020-10-01 12:38 | PHA.MEDREC ---
Pharmacy Consult ? Medication Reconciliation Pharmacy has completed the medication reconciliation using list from [facility].
[2020-10-01 14:50] VITALS: BP 105/65; PULSE 81; RESP 17; TEMP 36.7; O2SAT 99
[2020-10-01] MEDS: LORazepam 0.5 MG TABLET 2 MG PO (17:26)
[2020-10-01] MEDS: Folic Acid 1 MG TABLET PO (18:36)
[2020-10-01] MEDS: Divalproex Sodium 250 MG TABLET.DR 750 MG PO (18:36)
[2020-10-01] MEDS: Atorvastatin Calcium 10 MG TABLET PO (18:36)
[2020-10-01] MEDS: metFORMIN HCl 1,000 MG TABLET 1000 MG PO (18:36)
[2020-10-01] MEDS: Desmopressin Acetate 0.2 MG TABLET PO (18:56)
--- NOTE | 2020-10-01 20:10 | PC.NURSE ---
JAQUANN AT BEDSIDE. STATE THEY WILL HAVE TO DO A FOLLOW UP JAMEEL THEY WERE UNABLE TO GET IN TOUCH WITH PTS CURRENT LONG TERM, PREVIOUS LONG TERM AND THERE IS DDS INVOLVEMENT. PT HAS BEEN VOLATILE THROUGHOUT THE DAY, VOCAL ABOUT HER DESIRE TO BE UPSTAIRS. 1:1 THROUGHOUT THE DAY. MORE REDIRECTABLE FOLLOWING PO ATIVAN.
[2020-10-01] MEDS: Fluticasone Propionate 100 MCG BLST.W.DEV 1 PUFF INHALE (20:16)
[2020-10-01 22:26] VITALS: BP 107/70; PULSE 102
[2020-10-01] MEDS: traZODone HCL 50 MG TABLET PO (22:26)
[2020-10-01] MEDS: Topiramate 100 MG TABLET PO (22:26)
[2020-10-01] MEDS: Propranolol HCL 20 MG TABLET 60 MG PO (22:26)
[2020-10-01] MEDS: OLANZapine 10 MG TABLET PO (22:27)
[2020-10-01] MEDS: Divalproex Sodium 500 MG TABLET.DR 1000 MG PO (22:27)
[2020-10-01 22:28] VITALS: BP 107/70; PULSE 102; RESP 16; O2SAT 97
--- NOTE | 2020-10-02 06:50 | PC.NURSE ---
Patient slept through the night, no distress observed/reported, disposition is JAMEEL F/U by [facility] to communicates with collateral, patient is not crises patient at this time, prevailing issue is patient does not want to go back to her correction, VSS, med compliant, behavior mostly appropriate, will continue to monitor.
[2020-10-02 06:55] VITALS: BP 98/60; PULSE 77; RESP 16; TEMP 36.8; O2SAT 98
--- NOTE | 2020-10-02 07:41 | PC.NURSE ---
patient appears to remain at rest at present, patient appears in no distress.
[2020-10-02] MEDS: Divalproex Sodium 250 MG TABLET.DR 750 MG PO (11:18)
[2020-10-02 11:19] VITALS: BP 98/60; PULSE 80
[2020-10-02] MEDS: Propranolol HCL 20 MG TABLET 60 MG PO (11:19)
[2020-10-02] MEDS: Folic Acid 1 MG TABLET PO (11:20)
[2020-10-02] MEDS: OLANZapine 10 MG TABLET PO ×2 (11:20→21:05)
[2020-10-02] MEDS: metFORMIN HCl 1,000 MG TABLET 1000 MG PO ×2 (11:20→16:47)
[2020-10-02] MEDS: Atorvastatin Calcium 10 MG TABLET PO (11:20)
[2020-10-02] MEDS: Fluticasone Propionate 100 MCG BLST.W.DEV 1 PUFF INHALE ×2 (11:20→21:06)
[2020-10-02] MEDS: LORazepam 0.5 MG TABLET 2 MG PO (11:22)
[2020-10-02] MEDS: Desmopressin Acetate 0.2 MG TABLET PO (12:52)
--- NOTE | 2020-10-02 15:42 | PC.NURSE ---
Patient refusing oral medication at this time. patient requesting to talk to a security systems administrator because they understand me better . Patient starting to become more agitated.
[2020-10-02 16:07] VITALS: BP 117/68; PULSE 78; RESP 20; TEMP 36.7; O2SAT 97
--- NOTE | 2020-10-02 17:09 | PC.NURSE ---
Patient starting to yell in hallway. Reporting she is angry that other people are getting beds before her. Security able to calm patient down at this time. Patient refusing oral anxiety meds at this time,
[2020-10-02] MEDS: Acetaminophen 325 MG TABLET 650 MG PO (18:46)
[2020-10-02] MEDS: Divalproex Sodium 500 MG TABLET.DR 1000 MG PO (21:05)
[2020-10-02] MEDS: traZODone HCL 50 MG TABLET PO (21:06)
[2020-10-02] MEDS: Topiramate 100 MG TABLET PO (21:06)
[2020-10-02] MEDS: clonazePAM 1 MG TABLET PO (21:06)
[2020-10-02 21:13] VITALS: BP 95/66; PULSE 95
[2020-10-02] MEDS: Fluticasone Propionate Nasal 16 GM SPRAY 1 SPRAY NOSTRIL-B (21:19)
--- NOTE | 2020-10-02 22:24 | PC.NURSE ---
Patient is currently in bed appears sleeping, no distress observed/reported, med compliant, mood pleasant and appropriate, N called spoke with Jesu, confirmed that patient's disposition is inpatient bed search, will continue to monitor.
[2020-10-03 01:21] VITALS: BP 114/71; PULSE 83; TEMP 36.1; O2SAT 97
--- NOTE | 2020-10-03 06:19 | PC.NURSE ---
Patient slept through the night, out of room x 3 for bathroom use, for refreshment and for snacks, patient showered before going to bed, behavior appropriate, disposition is inpatient bed search, med compliant, will continue to monitor.
[2020-10-03 07:50] LABS: Influenza A PCR NEGATIVE (Negative); Influenza B PCR NEGATIVE (Negative); Resp Syncy Virus RNA Qual PCR NEGATIVE (Negative); SARS COV2 PCR INHOUSE NEGATIVE (Negative)
[2020-10-03 09:05] VITALS: BP 98/60; PULSE 77
[2020-10-03] MEDS: Divalproex Sodium 250 MG TABLET.DR 750 MG PO (09:05)
[2020-10-03] MEDS: Propranolol HCL 20 MG TABLET 60 MG PO ×2 (09:05→20:53)
[2020-10-03] MEDS: Fluticasone Propionate 100 MCG BLST.W.DEV 1 PUFF INHALE ×2 (09:05→20:59)
[2020-10-03] MEDS: Fluticasone Propionate Nasal 16 GM SPRAY 1 SPRAY NOSTRIL-B ×2 (09:05→20:59)
[2020-10-03] MEDS: Folic Acid 1 MG TABLET PO (09:05)
[2020-10-03] MEDS: Atorvastatin Calcium 10 MG TABLET PO (09:06)
[2020-10-03] MEDS: OLANZapine 10 MG TABLET PO ×2 (09:06→20:53)
[2020-10-03] MEDS: clonazePAM 1 MG TABLET PO ×3 (09:06→20:53)
[2020-10-03] MEDS: Desmopressin Acetate 0.2 MG TABLET PO (09:06)
[2020-10-03] MEDS: metFORMIN HCl 1,000 MG TABLET 1000 MG PO ×2 (09:07→18:48)
--- NOTE | 2020-10-03 11:03 | PC.NURSE ---
PT CALM,COOPERATIVE. BEDSEARCH CONTINUES
--- NOTE | 2020-10-03 16:34 | PC.NURSE ---
pt medicated with clonazepam as charted. Pt is upset about other pt's being admitted to the hospital before her, per CARE team pt is a DDS bedsearch and the only hospital that can take her is [facility] and pt is on wait list. This RN explained this to the pt. Pt does not appear satisfied with this answer at this time.
[2020-10-03] MEDS: Acetaminophen 325 MG TABLET 650 MG PO (17:38)
[2020-10-03 20:53] VITALS: BP 110/56; PULSE 78
[2020-10-03] MEDS: Divalproex Sodium 500 MG TABLET.DR 1000 MG PO (20:53)
[2020-10-03] MEDS: Topiramate 100 MG TABLET PO (20:53)
[2020-10-03] MEDS: traZODone HCL 50 MG TABLET PO (20:54)
--- NOTE | 2020-10-04 00:05 | PC.NURSE ---
Patient is currently sleeping, behavior at baseline, contact staff for numerous need, VSS, compliant with her medication, will continue to monitor.
[2020-10-04 01:50] VITALS: BP 111/73; PULSE 82; TEMP 36.2; O2SAT 97
--- NOTE | 2020-10-04 06:14 | PC.NURSE ---
Patient slept through the night, OOR x 3 for bathroom use and back, behavior appropriate and at baseline, VSS, med compliant, disposition is section 12 inpatient bed search, will continue to monitor.
--- NOTE | 2020-10-04 07:21 | PC.NURSE ---
pt took shower independently with little redirection needed. pt continues to be needy with staff.
[2020-10-04 08:11] VITALS: BP 111/73; PULSE 82
[2020-10-04] MEDS: Propranolol HCL 20 MG TABLET 60 MG PO ×2 (08:11→20:35)
[2020-10-04] MEDS: OLANZapine 10 MG TABLET PO ×2 (08:11→20:35)
[2020-10-04] MEDS: metFORMIN HCl 1,000 MG TABLET 1000 MG PO (08:11)
[2020-10-04] MEDS: Folic Acid 1 MG TABLET PO (08:11)
[2020-10-04] MEDS: Fluticasone Propionate 100 MCG BLST.W.DEV 1 PUFF INHALE ×2 (08:11→20:35)
[2020-10-04] MEDS: Atorvastatin Calcium 10 MG TABLET PO (08:11)
[2020-10-04] MEDS: Divalproex Sodium 250 MG TABLET.DR 750 MG PO (08:11)
[2020-10-04] MEDS: Fluticasone Propionate Nasal 16 GM SPRAY 1 SPRAY NOSTRIL-B ×2 (08:12→20:35)
[2020-10-04] MEDS: clonazePAM 1 MG TABLET PO ×2 (08:13→20:35)
[2020-10-04] MEDS: Desmopressin Acetate 0.2 MG TABLET PO (08:16)
[2020-10-04 09:15] VITALS: BP 102/54; PULSE 77; RESP 16; TEMP 35.9; O2SAT 98
--- NOTE | 2020-10-04 10:31 | PC.NURSE ---
[facility] cannot accept today per n
[2020-10-04 16:14] VITALS: BP 100/59; PULSE 79; RESP 18; TEMP 36.2; O2SAT 98
[2020-10-04 20:35] VITALS: BP 103/64; PULSE 84
[2020-10-04] MEDS: Divalproex Sodium 500 MG TABLET.DR 1000 MG PO (20:35)
[2020-10-04] MEDS: traZODone HCL 50 MG TABLET PO (20:35)
[2020-10-04] MEDS: Topiramate 100 MG TABLET PO (20:35)
[2020-10-04 20:46] VITALS: BP 103/64; PULSE 84; O2SAT 96
[2020-10-05 05:06] VITALS: BP 108/64; PULSE 68; RESP 16; TEMP 36.6; O2SAT 97
--- NOTE | 2020-10-05 06:38 | PC.NURSE ---
Patient slept through the night, patient out of room x3 for bathroom use and back, VSS, no distress observed/reported, behavior at baseline with multiple needs/attention, disposition is section 12 inpatient bed [facility], [facility] considering her admission, VSS, will continue to monitor.
--- NOTE | 2020-10-05 07:12 | PC.NURSE ---
patient appears to rest periodically, patient completing adl's at present appears in no distress
[2020-10-05 07:51] VITALS: BP 108/64; PULSE 68
[2020-10-05] MEDS: clonazePAM 1 MG TABLET PO ×3 (07:51→21:27)
[2020-10-05] MEDS: Propranolol HCL 20 MG TABLET 60 MG PO ×2 (07:51→21:33)
[2020-10-05] MEDS: Folic Acid 1 MG TABLET PO (07:52)
[2020-10-05] MEDS: Atorvastatin Calcium 10 MG TABLET PO (07:52)
[2020-10-05] MEDS: Fluticasone Propionate Nasal 16 GM SPRAY 1 SPRAY NOSTRIL-B ×2 (07:52→21:25)
[2020-10-05] MEDS: Divalproex Sodium 250 MG TABLET.DR 750 MG PO (07:52)
[2020-10-05] MEDS: OLANZapine 10 MG TABLET PO ×2 (07:52→21:23)
[2020-10-05] MEDS: metFORMIN HCl 1,000 MG TABLET 1000 MG PO ×2 (07:52→16:00)
[2020-10-05] MEDS: Fluticasone Propionate 100 MCG BLST.W.DEV 1 PUFF INHALE ×2 (07:52→21:25)
[2020-10-05] MEDS: Desmopressin Acetate 0.2 MG TABLET PO (07:58)
[2020-10-05 08:40] VITALS: BP 108/80; PULSE 84; RESP 17; TEMP 37.1; O2SAT 95
--- NOTE | 2020-10-05 15:41 | PC.NURSE ---
Pt pacing and frequently needs redirection. Eating sandwich, no acute distress at this time
[2020-10-05 16:54] VITALS: BP 99/66; PULSE 83; RESP 18; TEMP 36.2; O2SAT 98
[2020-10-05] MEDS: Topiramate 100 MG TABLET PO (21:23)
[2020-10-05] MEDS: Divalproex Sodium 500 MG TABLET.DR 1000 MG PO (21:23)
[2020-10-05] MEDS: traZODone HCL 50 MG TABLET PO (21:23)
[2020-10-05 21:33] VITALS: BP 107/85; PULSE 102
--- NOTE | 2020-10-06 06:21 | PC.NURSE ---
Patient slept through the night, no distress observed/reported, patient got upset and agitated last evening over not being able to go to [facility], med compliant, Behavior at baseline, intrusive and argumentative, disposition is section 12 inpatient bed search, awaiting bed openings at [facility], will continue to monitor.
[2020-10-06 06:32] VITALS: BP 105/57; PULSE 79; RESP 16; TEMP 36.8; O2SAT 97
--- NOTE | 2020-10-06 06:59 | PC.NURSE ---
patient awake upon arrival to the unit, mumbling when she speaks, asking for food. generally doesnt speak directly tp people, but moreover to the air, anticipating that persons around will hear and understand her.
[2020-10-06 09:07] VITALS: BP 105/57; PULSE 79
[2020-10-06] MEDS: metFORMIN HCl 1,000 MG TABLET 1000 MG PO ×2 (09:07→17:51)
[2020-10-06] MEDS: clonazePAM 1 MG TABLET PO ×3 (09:07→19:56)
[2020-10-06] MEDS: Atorvastatin Calcium 10 MG TABLET PO (09:07)
[2020-10-06] MEDS: Propranolol HCL 20 MG TABLET 60 MG PO ×2 (09:07→19:56)
[2020-10-06] MEDS: Folic Acid 1 MG TABLET PO (09:07)
[2020-10-06] MEDS: OLANZapine 10 MG TABLET PO ×2 (09:07→19:56)
[2020-10-06] MEDS: Divalproex Sodium 250 MG TABLET.DR 750 MG PO (09:07)
[2020-10-06] MEDS: Fluticasone Propionate Nasal 16 GM SPRAY 1 SPRAY NOSTRIL-B ×2 (09:08→19:57)
[2020-10-06] MEDS: Fluticasone Propionate 100 MCG BLST.W.DEV 1 PUFF INHALE ×2 (09:08→19:56)
[2020-10-06] MEDS: Desmopressin Acetate 0.2 MG TABLET PO (12:11)
[2020-10-06] MEDS: Divalproex Sodium 500 MG TABLET.DR 1000 MG PO (19:55)
[2020-10-06 19:56] VITALS: BP 106/64; PULSE 80; RESP 16; TEMP 36.1; O2SAT 97
[2020-10-06] MEDS: traZODone HCL 50 MG TABLET PO (19:56)
[2020-10-06] MEDS: Topiramate 100 MG TABLET PO (19:56)
[2020-10-07 03:37] VITALS: BP 109/60; PULSE 78; RESP 15; TEMP 36.3; O2SAT 99
--- NOTE | 2020-10-07 05:49 | PC.NURSE ---
Patient slept through the night, out of room times 3 for bathroom use and snacks, no distress observed/reported, med compliant, behavior at baseline without concerns, awaiting bed openings at [facility], [facility], will continue to monitor.
--- NOTE | 2020-10-07 07:05 | PC.NURSE ---
patient awake upon t/w's arrival, asking for a shower, patient having a difficult time accepting requests to wait
[2020-10-07 08:45] VITALS: BP 109/60; PULSE 80
[2020-10-07] MEDS: metFORMIN HCl 1,000 MG TABLET 1000 MG PO (08:45)
[2020-10-07] MEDS: Folic Acid 1 MG TABLET PO (08:45)
[2020-10-07] MEDS: Atorvastatin Calcium 10 MG TABLET PO (08:45)
[2020-10-07] MEDS: Propranolol HCL 20 MG TABLET 60 MG PO ×2 (08:45→21:07)
[2020-10-07] MEDS: Fluticasone Propionate Nasal 16 GM SPRAY 1 SPRAY NOSTRIL-B ×2 (08:45→21:07)
[2020-10-07] MEDS: Fluticasone Propionate 100 MCG BLST.W.DEV 1 PUFF INHALE ×2 (08:45→21:07)
[2020-10-07] MEDS: Desmopressin Acetate 0.2 MG TABLET PO (08:45)
[2020-10-07] MEDS: Divalproex Sodium 250 MG TABLET.DR 750 MG PO (08:46)
[2020-10-07] MEDS: OLANZapine 10 MG TABLET PO ×2 (08:46→21:07)
[2020-10-07] MEDS: Divalproex Sodium 500 MG TABLET.DR 1000 MG PO (21:06)
[2020-10-07 21:07] VITALS: BP 114/70; PULSE 80
[2020-10-07] MEDS: Topiramate 100 MG TABLET PO (21:07)
[2020-10-07] MEDS: traZODone HCL 50 MG TABLET PO (21:07)
--- NOTE | 2020-10-08 06:12 | PC.NURSE ---
Patient did not sleep well during the rn shift mgr but slept most part of the evening and afternoon yesterday, behavior at baseline, no distress observed/reported, VSS, med compliant, disposition per N is section 12 inpatient bed search, awaiting bed openings at [facility], will continue to monitor.
[2020-10-08 06:20] VITALS: BP 111/62; PULSE 79; RESP 18; TEMP 35.9; O2SAT 98
--- NOTE | 2020-10-08 07:20 | PC.NURSE ---
PT OUT IN COMMON AREA. CLOSE OBSERVATION MAINTAINED
[2020-10-08 08:12] VITALS: BP 102/2; PULSE 78; RESP 18; TEMP 36.6; O2SAT 98
[2020-10-08] MEDS: metFORMIN HCl 1,000 MG TABLET 1000 MG PO ×2 (08:13→17:34)
[2020-10-08] MEDS: Divalproex Sodium 250 MG TABLET.DR 750 MG PO (08:13)
[2020-10-08] MEDS: Atorvastatin Calcium 10 MG TABLET PO (08:13)
[2020-10-08 08:14] VITALS: BP 102/72; PULSE 78
[2020-10-08] MEDS: Propranolol HCL 20 MG TABLET 60 MG PO ×2 (08:14→22:18)
[2020-10-08] MEDS: Fluticasone Propionate 100 MCG BLST.W.DEV 1 PUFF INHALE ×2 (08:14→22:18)
[2020-10-08] MEDS: Desmopressin Acetate 0.2 MG TABLET PO (08:14)
[2020-10-08] MEDS: Folic Acid 1 MG TABLET PO (08:14)
[2020-10-08] MEDS: OLANZapine 10 MG TABLET PO ×2 (08:14→22:17)
[2020-10-08] MEDS: Fluticasone Propionate Nasal 16 GM SPRAY 1 SPRAY NOSTRIL-B ×2 (08:14→22:18)
[2020-10-08 10:51] LABS: Glucose, Whole Blood 214 mg/dL (60-115)
[2020-10-08 14:40] VITALS: BP 103/48; PULSE 78; TEMP 36.2; O2SAT 98
--- NOTE | 2020-10-08 16:25 | PC.NURSE ---
Pt interactive with staff and patients in POD. Playing Jesus, redirectable when needed. Steady on feet. Skin pwd. Awaits disposition.
[2020-10-08 18:04] LABS: Glucose, Whole Blood 285 mg/dL (60-115)
[2020-10-08] MEDS: Divalproex Sodium 500 MG TABLET.DR 1000 MG PO (22:17)
[2020-10-08] MEDS: traZODone HCL 50 MG TABLET PO (22:17)
[2020-10-08] MEDS: Topiramate 100 MG TABLET PO (22:17)
[2020-10-08 22:18] VITALS: BP 124/74; PULSE 65
[2020-10-09 00:24] VITALS: BP 108/75; PULSE 80; RESP 17; TEMP 36.6; O2SAT 98
--- NOTE | 2020-10-09 05:41 | PC.NURSE ---
Patient slept through the night, out of room three times for bathroom use and for snacks, patient denied any distress at this time, disposition is section 12 inpatient bed search, awaiting bed openings at [facility], behavior at baseline and [id number] mostly, med compliant, appetite good, elimination intact, will continue to monitor.
--- NOTE | 2020-10-09 07:22 | PC.NURSE ---
pt alert, responsive, walking around pod. Came to nurses station asking for headphones. will continue to monitor.
[2020-10-09 07:34] LABS: Glucose, Whole Blood 216 mg/dL (60-115)
[2020-10-09] MEDS: Fluticasone Propionate 100 MCG BLST.W.DEV 1 PUFF INHALE (08:09)
[2020-10-09] MEDS: Fluticasone Propionate Nasal 16 GM SPRAY 1 SPRAY NOSTRIL-B (08:09)
[2020-10-09] MEDS: Desmopressin Acetate 0.2 MG TABLET PO (08:10)
[2020-10-09] MEDS: Divalproex Sodium 250 MG TABLET.DR 750 MG PO (08:10)
[2020-10-09] MEDS: OLANZapine 10 MG TABLET PO (08:10)
[2020-10-09] MEDS: Folic Acid 1 MG TABLET PO (08:10)
[2020-10-09] MEDS: Atorvastatin Calcium 10 MG TABLET PO (08:10)
[2020-10-09] MEDS: metFORMIN HCl 1,000 MG TABLET 1000 MG PO (08:10)
[2020-10-09 08:19] VITALS: BP 95/61; PULSE 75; TEMP 36; O2SAT 100
[2020-10-09] MEDS: Propranolol HCL 20 MG TABLET 60 MG PO (08:19)
== END 2020-10-09 16:01 | disposition home or self-care (01) ==
PROVIDERS: Internal Medicine; Physician Assistant Medical; Emergency Provider Emergency Medicine; PCP Internal Medicine
DX: F41.1 Generalized anxiety disorder (principal); F43.0 Acute stress reaction; F20.9 Schizophrenia, unspecified; R45.850 Homicidal ideations; F31.9 Bipolar disorder, unspecified; Z20.822 Contact with and (suspected) exposure to COVID-19; Z79.899 Other long term (current) drug therapy
CPT/HCPCS: 0241U; 36415; 80053; 80307; 81003; 82077; 82947; 83735; 84702; 85025; 99285

== ENCOUNTER 2020-10-10 16:42 | Emergency (ER) | payer OTHER, SELFPAY ==
[2020-10-10 16:44] VITALS: BP 105/69; PULSE 87; O2SAT 98
[2020-10-10 16:50] VITALS: BP 96/63; PULSE 76; RESP 16; TEMP 36.6; O2SAT 97; BMI 35.4
--- NOTE | 2020-10-10 17:02 | ED_ITS ---
HPI - Psych General Chief Complaint: Psychiatric Symptoms Stated Complaint: CRISIS,ELOPED FROM [facility] Time Seen by Provider: 10/10/20 17:01 Source: patient Limitations: other (Psychiatric illness) History of Present Illness HPI Narrative: This is a 30-year-old female who Eloped from her nursing home. The patient complains of anger and depression. She states that she had some sort of an altercation with staff at the nursing home. The patient states she has tried to cut herself with the edge of a CD. She said she was trying to hurt herself. She states she has tried suicide in the past. She denies any other physical complaints such as headache, chest pain, shortness of breath. Patient notes a history of depression. The patient admits poor appetite and trouble sleeping. She states she wants to leave her nursing home. Related Data Home Medications Medication Instructions Recorded Confirmed acetaminophen 325 mg tablet 650 mg PO Q6H PRN 08/21/20 10/01/20 albuterol sulfate 90 mcg/actuation 2 puff INHALATION TID PRN 08/21/20 10/01/20 aerosol inhaler (ProAir HFA) atorvastatin 10 mg tablet 10 mg PO DAILY 08/21/20 10/01/20 desmopressin 0.2 mg tablet 0.2 mg PO DAILY 08/21/20 10/01/20 divalproex 250 mg tablet,delayed 750 mg PO QAM 08/21/20 10/01/20 release divalproex 500 mg tablet,delayed 1,000 mg PO BEDTIME 08/21/20 10/01/20 release fluticasone propionate 44 2 puff INHALATION BID 08/21/20 10/01/20 mcg/actuation HFA aerosol inhaler (Flovent HFA) fluticasone propionate 50 1 spray INTRANASAL BID 08/21/20 10/01/20 mcg/actuation nasal spray,suspension folic acid 1 mg tablet 1 mg PO DAILY 08/21/20 10/01/20 loratadine 10 mg tablet 10 mg PO DAILY PRN 08/21/20 10/01/20 metformin 1,000 mg tablet 1 tab PO BIDWM 08/21/20 10/01/20 olanzapine 10 mg tablet 10 mg PO BID 08/21/20 10/01/20 propranolol 60 mg tablet 1 tab PO BID 08/21/20 10/01/20 topiramate 100 mg tablet 100 mg PO BEDTIME 08/21/20 10/01/20 clonazepam 1 mg tablet (Klonopin) 1 tab PO TID@08,16,20 10/01/20 10/01/20 trazodone 50 mg tablet 1 tab PO BEDTIME 10/01/20 10/01/20 Allergies Allergy/AdvReac Type Severity Reaction Status Date / Time mushroom Allergy Unknown TURNS Unverified 11/10/19 17:38 ASHEN, FEET BREAK OUT (MUSHROOM FLAVOR) Seafood Allergy Mild RASH Uncoded 11/10/19 17:38 LOBSTER Allergy Unknown UNKNOWN Uncoded 11/10/19 17:38 Review of Systems Constitutional: Constitutional: Reports as per HPI and Denies headache(s) ENT: Denies headache(s) Cardiovascular: Cardiovascular: Reports no additional cardiovascular complaints Respiratory: Respiratory: Reports no additional respiratory complaints Gastrointestinal: Gastrointestinal: Reports no additional gastrointestinal complaints Integumentary/Breasts: Comments: ?Cuts? to forearms from CD Neurologic: Denies headache(s) Psychiatric: Psychiatric: Reports depression [facility] Past Medical History Medical History Asthma Autism Bipolar 1 disorder Diabetes Hyperlipidemia Mental health disorder Schizophrenia Social History Social History (Updated 10/01/20 @ 04:10 by Mckenna Oneil DO) Patient Tobacco Use Status: Never used Tobacco Advance Directives: No Advance Directives Information Provided: Yes Patient : No Physical Exam Vital Signs: Vital Signs: Last Vital Signs Temp 97.9 F 10/10/20 16:50 Pulse 76 10/10/20 16:50 Resp 16 10/10/20 16:50 BP 96/63 10/10/20 16:50 Pulse Ox 97 10/10/20 16:50 Body Mass Index 35.4 Const: General: cooperative HENMT: Head: Yes normal to inspection Mouth: moist mucous membranes Eyes: General: appearance normal, both eyes and all related structures Resp: Effort & Inspection: normal respiratory effort and able to speak in complete sentences Auscultation: clear to auscultation bilaterally Cardio: Rate: regular rate Rhythm: regular rhythm and abnormal rhythm Heart sounds: S1 normal heart sound present and S2 normal heart sound present Skin: Other: Forearms without any concerning skin rashes or lacerations. Barely visible superficial hurley, likely from CD edge Are present Psych: Appearance: well kempt Affect: Sad affect present and Blunted affect present MDM - Psych MDM Narrative Medical decision making narrative: Staff from the patient's nursing home called and stated that she should not have psychiatric evaluation here as she just had a three-week admission to Psychiatry, and they have a plan for her care Patient frequently elopes from her nursing home and presents to this ED as well as other local ED. since the patient just had a 3 week stay, and since her eloping behavior should not be rewarded, the care team that the patient should return to her nursing home and follow her prior care plan. patient was agreeable to returning Discharge Plan Discharge Clinical Impression: Suicidal ideation, Depression Patient Disposition: Home, Self-Care Instructions: Depression (ED) Additional Instructions: Follow-up as instructed by the psychiatric care team upon your last discharge Prescriptions: No Action acetaminophen 325 mg tablet 650 mg PO Q6H PRN (Reason: PAIN, COCHRAN, OR FEVER>100) RF: 0 divalproex 250 mg tablet,delayed release (DR/EC) 750 mg PO QAM RF: 0 atorvastatin 10 mg tablet 10 mg PO DAILY RF: 0 desmopressin 0.2 mg tablet 0.2 mg PO DAILY RF: 0 olanzapine 10 mg tablet 10 mg PO BID RF: 0 divalproex 500 mg tablet,delayed release (DR/EC) 1,000 mg PO BEDTIME RF: 0 metformin 1,000 mg tablet 1 tab PO BIDWM RF: 0 Flovent HFA 44 mcg/actuation HFA aerosol inhaler 2 puff inhalation BID RF: 0 folic acid 1 mg tablet 1 mg PO DAILY RF: 0 topiramate 100 mg tablet 100 mg PO BEDTIME RF: 0 loratadine 10 mg tablet 10 mg PO DAILY PRN (Reason: Allergic Symptoms) RF: 0 propranolol 60 mg tablet 1 tab PO BID RF: 0 fluticasone propionate 50 mcg/actuation spray,suspension 1 spray intranasal BID RF: 0 albuterol sulfate [ProAir HFA] 90 mcg/actuation HFA aerosol inhaler 2 puff inhalation TID PRN (Reason: Shortness Of Breath) RF: 0 trazodone 50 mg tablet 1 tab PO BEDTIME RF: 0 clonazepam [Klonopin] 1 mg tablet 1 tab PO TID@08,16,20 RF: 0 Interventions: ED Discharge Assessment Last Done: 10/10/20 19:17 Discharge Date/Time: 10/10/20 19:17
--- NOTE | 2020-10-10 18:50 | MHC.CARE ---
CARE team spoke with manager of sales Za Plummer who reports that pt has been non compliant with staff. Pt was reportedly in restraints today and police were involved. pt was sent to [facility], did not require an evaluation and was sent back. She escalated as soon as she returned. It is very clear she does not want to be at her care home but does not require a higher level of care. CARE team met with pt. Pt is reluctant to go back to the program but states she will only go if she gets a chairvan. Pt appears in a good space and bought herself pretzels. Za was notified via voicemail and care home was called and notified. Pt will be discharged.
== END 2020-10-10 19:17 | disposition home or self-care (01) ==
PROVIDERS: Emergency Provider Emergency Medicine; PCP Internal Medicine
DX: F43.0 Acute stress reaction (principal)
CPT/HCPCS: 99283

== ENCOUNTER 2021-11-26 00:52 | Emergency (ER) | payer OTHER, SELFPAY ==
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
[2021-11-26 01:18] VITALS: BP 108/83; PULSE 89; RESP 16; TEMP 36.2; O2SAT 97; BMI 27.8
[2021-11-26 01:31] LABS: Appearance Urine Cloudy; Color Urine Yellow; Glucose Urine UA Negative (Negative); Leukocyte Esterase Urine Small (1+) (Negative); Nitrite Urine Negative (Negative); PH 7.5 (5.0-9.0); UMIC TRIGGER UA YES; Urine Blood Large (3+) (Negative); Urine Ketones Trace mg/dL (Negative); Urine Protein Trace mg/dL (Neg-Trace)
[2021-11-26 01:32] LABS: UPreg QC Valid YES; Urine Pregnancy NEGATIVE (NEGATIVE)
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
[2021-11-26 01:34] LABS: COVID-19 Test Negative (Negative); IDNOW Serial# 16C4AD1C
[2021-11-26 01:45] LABS: Amphetamine Screen Urine Not Detected (Not Detect); Barbiturates, Urine Not Detected (Not Detect); Benzodiazepines Screen Urine Not Detected (Not Detect); Cannabinoid Screen Urine Not Detected (Not Detect); Cocaine Screen Urine Not Detected (Not Detect); Fentanyl, urine Not Detected (Not Detect); Opiate Screen Urine Not Detected (Not Detect); Phencyclidine Screen Urine Not Detected (Not Detect)
[2021-11-26 01:49] LABS: Bacteria Urine None Seen (None Seen); Hyaline Casts Urine 0-2 /LPF (0-2); RBC Urine >20 /HPF (0-2); WBC Urine 0-5 /HPF (0-5)
[2021-11-26 02:02] LABS: Basophils Absolute Auto 0.1 X10*3/uL (0.0-0.2); Basophils Percent Auto 0.6 % (0-2); Eosinophils Absolute Auto 0.3 X10*3/uL (0.0-0.4); Hematocrit 35.1 % (37.0-47.0); Hemoglobin 11.9 g/dl (12.0-16.0); Imm Gran Abs Auto 0.21 X10*3/uL (0.00-0.03); Imm Gran Pct Auto 2.4 % (0.0-0.4); Lymphocytes Absolute Auto 2.1 X10*3/uL (1.2-4.9); Lymphocytes Percent Auto 24.4 % (20-40); MANUAL DIFF FLAG NO; Mean Corpuscular HGB Conc 33.9 g/dl (31.0-35.0); Mean Corpuscular Hemoglobin 33.1 pg (27.0-33.0); Mean Corpuscular Volume 97.8 fL (80.0-98.0); Mean Platelet Volume 9.6 fL (9.4-12.3); Monocytes Percent Auto 11.3 % (2-11); Neutrophils Percent Auto 58.3 % (45-73); Platelet Count 162 X10*3/uL (160-400); Red Blood Count 3.59 X10*6/uL (4.20-5.50); Red Cell Distribution Width 13.1 % (11.0-16.0); White Blood Count 8.6 X10*3/uL (4.8-10.8)
--- NOTE | 2021-11-26 06:03 | PC.NURSE ---
Patient sleeping comfortably with out any distress. Will continue to monitor.
[2021-11-26 06:06] LABS: Alanine Aminotransferase 8 U/L (0-31); Albumin Level 3.5 g/dL (3.5-5.0); Alkaline Phosphatase 56 U/L (39-117); Anion Gap 14 (12-20); Aspartate Amino Transferase 11 U/L (5-31); Bilirubin Total 0.3 mg/dL (0.0-1.0); Blood Urea Nitrogen 9 mg/dL (9-16); Carbon Dioxide 25 mmol/L (22-29); Chloride 104 mmol/L (96-108); Creatinine Clr Calc Pharmacy 100.7; Estimated Glomerular Filt Rate > 60; Glucose Random 122 mg/dL (60-115); Potassium 4.3 mmol/L (3.3-5.1); Sodium 139 mmol/L (135-145); Total Protein 6.1 g/dL (6.5-8.0)
--- NOTE | 2021-11-26 07:14 | PC.NURSE ---
patient appears to remain asleep at present respirations are even and unlaboured patient appears in no distress
[2021-11-26 08:19] LABS: Ammonia 40 umol/L (13-55)
[2021-11-26 11:23] VITALS: BP 117/77; PULSE 70; TEMP 36.5; O2SAT 99
== END 2021-11-26 13:19 | disposition home or self-care (01) ==
PROVIDERS: Emergency Medicine; Physician Assistant; Emergency Provider Emergency Medicine; PCP Internal Medicine
DX: F91.2 Conduct disorder, adolescent-onset type (principal); F33.1 Major depressive disorder, recurrent, moderate; Z20.822 Contact with and (suspected) exposure to COVID-19; Z79.899 Other long term (current) drug therapy
CPT/HCPCS: 36415; 80053; 80164; 80307; 81001; 81025; 82140; 85025; 87635; 99284

== ENCOUNTER 2022-04-10 18:49 | Emergency (ER) | payer OTHER, SELFPAY ==
[2022-04-10 18:58] VITALS: BP 98/67; PULSE 83; RESP 14; TEMP 36.6; O2SAT 98; BMI 29.5
[2022-04-10 19:32] LABS: MANUAL DIFF FLAG NO
[2022-04-10 19:42] LABS: Basophils Absolute Auto 0.1 X10*3/uL (0.0-0.2); Basophils Percent Auto 0.5 % (0-2); Eosinophils Absolute Auto 0.1 X10*3/uL (0.0-0.4); Eosinophils Percent Auto 1.3 % (0-4); Hemoglobin 14.2 g/dl (12.0-16.0); Lymphocytes Absolute Auto 2.4 X10*3/uL (1.2-4.9); Lymphocytes Percent Auto 24.9 % (20-40); Mean Corpuscular HGB Conc 33.8 g/dl (31.0-35.0); Mean Corpuscular Hemoglobin 33.2 pg (27.0-33.0); Mean Corpuscular Volume 98.1 fL (80.0-98.0); Mean Platelet Volume 9.6 fL (9.4-12.3); Monocytes Absolute Auto 0.7 X10*3/uL (0.1-1.2); Monocytes Percent Auto 7.2 % (2-11); Neutrophils Absolute Auto 6.3 x10*3/uL (2.0-8.3); Neutrophils Percent Auto 65.1 % (45-73); Platelet Count 279 X10*3/uL (160-400); Red Blood Count 4.28 X10*6/uL (4.20-5.50); Red Cell Distribution Width 12.3 % (11.0-16.0); White Blood Count 9.7 X10*3/uL (4.8-10.8)
[2022-04-10 19:47] LABS: COVID-19 Test Negative (Negative); IDNOW Serial# 16C4AD1C
[2022-04-10 19:48] LABS: Amphetamine Screen Urine Not Detected (Not Detect); Barbiturates, Urine Not Detected (Not Detect); Benzodiazepines Screen Urine Not Detected (Not Detect); Cannabinoid Screen Urine Not Detected (Not Detect); Cocaine Screen Urine Not Detected (Not Detect); Fentanyl, urine Not Detected (Not Detect); Opiate Screen Urine Not Detected (Not Detect); Phencyclidine Screen Urine Not Detected (Not Detect)
[2022-04-10 19:50] LABS: Appearance Urine Clear; Color Urine Yellow; Glucose Urine UA Negative (Negative); Leukocyte Esterase Urine Negative (Negative); Nitrite Urine Negative (Negative); PH 6.5 (5.0-9.0); Urine Blood Negative (Negative); Urine Ketones Negative (Negative); Urine Protein Negative (Neg-Trace)
[2022-04-10 19:58] LABS: UPreg QC Valid YES; Urine Pregnancy NEGATIVE (NEGATIVE)
[2022-04-10 19:58] LABS: Alanine Aminotransferase 7 U/L (0-31); Albumin Level 4.1 g/dL (3.5-5.0); Alkaline Phosphatase 65 U/L (39-117); Anion Gap 14 (12-20); Aspartate Amino Transferase 9 U/L (5-31); Bilirubin Total 0.2 mg/dL (0.0-1.0); Blood Urea Nitrogen 13 mg/dL (9-16); Calcium 10.2 mg/dL (8.4-10.2); Carbon Dioxide 26 mmol/L (22-29); Chloride 111 mmol/L (96-108); Estimated Glomerular Filt Rate > 60; Glucose Random 113 mg/dL (60-115); Magnesium 1.7 mg/dL (1.6-2.6); Potassium 4.4 mmol/L (3.3-5.1); Sodium 147 mmol/L (135-145); Total Protein 7.4 g/dL (6.5-8.0)
--- NOTE | 2022-04-10 19:59 | ED_ITS ---
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 PAIN, COCHRAN, OR FEVER>100) olanzapine 10 mg tablet 10 mg PO QAM divalproex 500 mg tablet,delayed release (DR/EC) 1,000 mg PO BEDTIME albuterol sulfate [ProAir HFA] 90 mcg/actuation HFA aerosol inhaler 2 puff inhalation TID PRN (Reason: Shortness Of Breath) trazodone 50 mg tablet 100 mg PO BEDTIME olanzapine 15 mg tablet 1 tab PO BEDTIME divalproex 250 mg tablet,delayed release (DR/EC) 750 mg PO QAM atorvastatin 10 mg tablet 1 tab PO DAILY propranolol 60 mg capsule,extended release 24 hr 60 mg PO BID desmopressin 0.2 mg tablet 0.2 mg PO DAILY clonazepam 1 mg tablet 1 tab PO BID PRN (Reason: Anxiety) metformin 1,000 mg tablet 1,000 mg PO BID topiramate 100 mg tablet 1 tab PO DAILY <Juan Antonio Nguyễn - Last Filed: 04/11/22 01:07> Referrals: Rick Go MD [Primary Care Provider] - 3 days <Juan Antonio Nguyễn - Last Filed: 04/11/22 01:07> Interventions: [place]-Suicide Risk Severity Scale Last Done: 04/11/22 05:38 <Juan Antonio Nguyễn - Last Filed: 04/11/22 01:07>
--- NOTE | 2022-04-10 20:41 | MHC.CARE ---
Pt's [facility] contact is Lesli ([facility] Worker) [phone]
[2022-04-10] MEDS: Divalproex Sodium 500 MG TABLET.DR 1000 MG PO (21:39)
[2022-04-10] MEDS: metFORMIN HCl 1,000 MG TABLET 1000 MG PO (21:39)
[2022-04-10] MEDS: traZODone HCL 100 MG TABLET PO (21:39)
[2022-04-10] MEDS: OLANZapine 7.5 MG TABLET 15 MG PO (21:39)
[2022-04-10 21:58] VITALS: BP 110/85; PULSE 84; RESP 18; TEMP 36.4; O2SAT 98
[2022-04-10] MEDS: Propranolol HCL LA 60 MG CAP.SA.24H PO (21:59)
--- NOTE | 2022-04-10 22:51 | MHC.CARE ---
CARE Team ivet completed. Pt will remain the night and discharge will be coordinated in the morning w/ mailroom managerLesli.
--- NOTE | 2022-04-11 06:24 | PC.NURSE ---
Patient slept through the night, no distress observed/reported, behavior non concerning, disposition JAMEEL follow up by care team in the morning, VSS, medication compliant, will continue to monitor.
[2022-04-11 06:46] VITALS: BP 97/61; PULSE 76; RESP 15; TEMP 36.5; O2SAT 96
--- NOTE | 2022-04-11 07:10 | PC.NURSE ---
assumed care of patient, pt resting comfortably, breakfast tray delivered, VSS, ?D/C today
[2022-04-11 07:18] VITALS: BP 116/80; PULSE 86; RESP 16; TEMP 36.3; O2SAT 95
[2022-04-11] MEDS: Propranolol HCL LA 60 MG CAP.SA.24H PO (08:14)
[2022-04-11] MEDS: Topiramate 100 MG TABLET PO (08:14)
[2022-04-11] MEDS: Divalproex Sodium 250 MG TABLET.DR 750 MG PO (08:14)
[2022-04-11] MEDS: OLANZapine 10 MG TABLET PO (08:14)
[2022-04-11] MEDS: Atorvastatin Calcium 10 MG TABLET PO (08:14)
[2022-04-11] MEDS: metFORMIN HCl 1,000 MG TABLET 1000 MG PO (08:14)
[2022-04-11] MEDS: Desmopressin Acetate 0.2 MG TABLET PO (08:14)
--- NOTE | 2022-04-11 08:48 | MHC.CARE ---
CARE Team calls Lesli [facility] operating systems programmer ([phone].? No answer.? CARE Team left a message requesting a return phone call.
[2022-04-11] MEDS: clonazePAM 1 MG TABLET PO (10:06)
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
[2022-04-11] MEDS: HaloperidoL 5 MG TABLET PO (10:42)
--- NOTE | 2022-04-11 10:55 | MHC.CARE ---
CARE Team calls Lesli [facility] [employer] programmer ([phone]).? No answer.? CARE Team left a message requesting a return phone call.
== END 2022-04-11 16:18 | disposition home or self-care (01) ==
PROVIDERS: Emergency Provider Emergency Medicine; PCP Internal Medicine
DX: F91.9 Conduct disorder, unspecified (principal); F79 Unspecified intellectual disabilities; F34.9 Persistent mood [affective] disorder, unspecified; R45.1 Restlessness and agitation; Z20.822 Contact with and (suspected) exposure to COVID-19; Z20.828 Contact with and (suspected) exposure to other viral communicable diseases; Z79.899 Other long term (current) drug therapy
CPT/HCPCS: 36415; 80053; 80164; 80307; 81003; 81025; 83735; 85025; 87635; 99284; S9485

== ENCOUNTER 2022-05-29 21:11 | Emergency (ER) | payer OTHER, SELFPAY ==
[2022-05-29 21:32] VITALS: BP 146/77; PULSE 81; RESP 16; TEMP 36.4; O2SAT 99; BMI 27.4
[2022-05-29 22:11] VITALS: BP 103/75; PULSE 70; RESP 16; TEMP 36.4; O2SAT 100
--- NOTE | 2022-05-29 22:51 | PC.NURSE ---
security present, pt clothes changed over, belonging taken by security
--- NOTE | 2022-05-29 23:08 | PC.NURSE ---
sitter present in the room
[2022-05-29 23:40] LABS: Appearance Urine Clear; Color Urine Yellow; Glucose Urine UA Negative (Negative); Leukocyte Esterase Urine Negative (Negative); Nitrite Urine Negative (Negative); PH 7.5 (5.0-9.0); UPreg QC Valid YES; Urine Blood Negative (Negative); Urine Ketones Negative (Negative); Urine Pregnancy NEGATIVE (NEGATIVE); Urine Protein Negative (Neg-Trace)
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
[2022-05-29 23:50] VITALS: BP 110/74; PULSE 68; RESP 16; O2SAT 97
[2022-05-30 00:01] LABS: Amphetamine Screen Urine Not Detected (Not Detect); Barbiturates, Urine Not Detected (Not Detect); Benzodiazepines Screen Urine Not Detected (Not Detect); Cannabinoid Screen Urine Not Detected (Not Detect); Cocaine Screen Urine Not Detected (Not Detect); Fentanyl, urine Not Detected (Not Detect); Opiate Screen Urine Not Detected (Not Detect); Phencyclidine Screen Urine Not Detected (Not Detect)
[2022-05-30 00:16] LABS: COVID-19 Test Negative (Negative); IDNOW Serial# 6674DD1D
[2022-05-30 00:26] LABS: MANUAL DIFF FLAG NO
[2022-05-30 00:27] LABS: Basophils Percent Auto 0.5 % (0-2); Eosinophils Absolute Auto 0.1 X10*3/uL (0.0-0.4); Eosinophils Percent Auto 1.1 % (0-4); Hematocrit 32.5 % (37.0-47.0); Hemoglobin 11.6 g/dl (12.0-16.0); Imm Gran Abs Auto 0.21 X10*3/uL (0.00-0.03); Imm Gran Pct Auto 3.2 % (0.0-0.4); Lymphocytes Absolute Auto 2.3 X10*3/uL (1.2-4.9); Mean Corpuscular HGB Conc 35.7 g/dl (31.0-35.0); Mean Corpuscular Hemoglobin 32.9 pg (27.0-33.0); Mean Corpuscular Volume 92.1 fL (80.0-98.0); Mean Platelet Volume 10.2 fL (9.4-12.3); Monocytes Absolute Auto 0.7 X10*3/uL (0.1-1.2); Monocytes Percent Auto 10.8 % (2-11); Neutrophils Absolute Auto 3.3 x10*3/uL (2.0-8.3); Neutrophils Percent Auto 49.4 % (45-73); Platelet Count 210 X10*3/uL (160-400); Red Blood Count 3.53 X10*6/uL (4.20-5.50); Red Cell Distribution Width 11.8 % (11.0-16.0); White Blood Count 6.7 X10*3/uL (4.8-10.8)
[2022-05-30 00:43] LABS: Alanine Aminotransferase 7 U/L (0-31); Alkaline Phosphatase 49 U/L (39-117); Anion Gap 9 (12-20); Aspartate Amino Transferase 10 U/L (5-31); Bilirubin Total 0.3 mg/dL (0.0-1.0); Blood Urea Nitrogen 5 mg/dL (9-16); Calcium 8.6 mg/dL (8.4-10.2); Carbon Dioxide 24 mmol/L (22-29); Chloride 97 mmol/L (96-108); Estimated Glomerular Filt Rate > 60; Glucose Random 88 mg/dL (60-115); Potassium 4.2 mmol/L (3.3-5.1); Sodium 126 mmol/L (135-145); Total Protein 5.2 g/dL (6.5-8.0)
[2022-05-30 00:44] LABS: Ethanol < 10 mg/dL
[2022-05-30 00:51] LABS: Valproate 120.4 mcg/mL (50.0-100.0)
[2022-05-30 00:52] LABS: HCG Quantitative < 2 mIU/mL
--- NOTE | 2022-05-30 06:00 | PC.NURSE ---
Patient slept through the night, no distress observed/reported, behavior non concerning, thought content delusional over being , med rec completed/pending provider's approval, labs ordered/completed/resulted, Valproic level 120.4 critical level but patient asymptomatic of depakote toxicity, provider aware/plan is to hold depakote, care consult ordered/pending evaluation, VSS, will continue to monitor.
[2022-05-30] MEDS: Topiramate 100 MG TABLET PO (09:25)
[2022-05-30] MEDS: Folic Acid 1 MG TABLET PO (09:25)
[2022-05-30] MEDS: OLANZapine 2.5 MG TABLET PO (09:25)
[2022-05-30] MEDS: metFORMIN HCl ER 500 MG TAB.ER.24H 1000 MG PO (09:25)
[2022-05-30] MEDS: OLANZapine 10 MG TABLET PO (09:25)
[2022-05-30] MEDS: Atorvastatin Calcium 10 MG TABLET PO (09:25)
--- NOTE | 2022-05-30 09:29 | PC.NURSE ---
Pharmacy called for 2 meds not available in ED
[2022-05-30] MEDS: Propranolol HCL LA 60 MG CAP.SA.24H PO (10:24)
[2022-05-30] MEDS: Desmopressin Acetate 0.2 MG TABLET 0.6 MG PO (10:25)
[2022-05-30 10:32] VITALS: BP 110/67; PULSE 76; RESP 16; TEMP 36.7; O2SAT 100
--- NOTE | 2022-05-30 12:12 | PC.NURSE ---
Pt cleaned and changed into new hospital attire. Linen changed.
== END 2022-05-30 12:35 | disposition home or self-care (01) ==
PROVIDERS: Emergency Provider Emergency Medicine Emergency Medical Services; PCP Internal Medicine
DX: F22 Delusional disorders (principal); R11.2 Nausea with vomiting, unspecified; Z20.822 Contact with and (suspected) exposure to COVID-19; Z20.828 Contact with and (suspected) exposure to other viral communicable diseases; Z79.899 Other long term (current) drug therapy
CPT/HCPCS: 36415; 80053; 80164; 80307; 81003; 81025; 82077; 84702; 85025; 87635; 99284; S9485

== ENCOUNTER 2022-06-05 01:05 | Emergency (ER) | payer OTHER, SELFPAY ==
[2022-06-05 01:17] VITALS: BP 110/58; PULSE 75; O2SAT 97; BMI 20.5
[2022-06-05 01:37] LABS: Basophils Percent Auto 0.2 % (0-2); Eosinophils Absolute Auto 0.1 X10*3/uL (0.0-0.4); Eosinophils Percent Auto 1.4 % (0-4); Hematocrit 36.2 % (37.0-47.0); Hemoglobin 12.5 g/dl (12.0-16.0); Imm Gran Abs Auto 0.15 X10*3/uL (0.00-0.03); Imm Gran Pct Auto 1.6 % (0.0-0.4); Lymphocytes Absolute Auto 2.9 X10*3/uL (1.2-4.9); Lymphocytes Percent Auto 31.2 % (20-40); MANUAL DIFF FLAG NO; Mean Corpuscular HGB Conc 34.5 g/dl (31.0-35.0); Mean Corpuscular Hemoglobin 32.6 pg (27.0-33.0); Mean Corpuscular Volume 94.3 fL (80.0-98.0); Mean Platelet Volume 9.4 fL (9.4-12.3); Monocytes Percent Auto 10.1 % (2-11); Neutrophils Absolute Auto 5.2 x10*3/uL (2.0-8.3); Neutrophils Percent Auto 55.5 % (45-73); Platelet Count 217 X10*3/uL (160-400); Red Blood Count 3.84 X10*6/uL (4.20-5.50); Red Cell Distribution Width 12.1 % (11.0-16.0); White Blood Count 9.4 X10*3/uL (4.8-10.8)
[2022-06-05 01:38] LABS: Appearance Urine Clear; Color Urine Yellow; Glucose Urine UA Negative (Negative); Leukocyte Esterase Urine Trace (Negative); Nitrite Urine Negative (Negative); PH 7.5 (5.0-9.0); UMIC TRIGGER UACC YES; Urine Blood Large (3+) (Negative); Urine Ketones Negative (Negative); Urine Protein Negative (Neg-Trace)
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
[2022-06-05 01:43] LABS: Bacteria Urine None Seen (None Seen); Hyaline Casts Urine 0-2 /LPF (0-2); RBC Urine >20 /HPF (0-2); Squamous Epithelial Cell Urine 0-2 /HPF (0-2); WBC Urine 0-5 /HPF (0-5)
[2022-06-05 01:53] LABS: Amphetamine Screen Urine Not Detected (Not Detect); Barbiturates, Urine Not Detected (Not Detect); Benzodiazepines Screen Urine Not Detected (Not Detect); Cannabinoid Screen Urine Not Detected (Not Detect); Cocaine Screen Urine Not Detected (Not Detect); Fentanyl, urine POSITIVE (Not Detect); Opiate Screen Urine Not Detected (Not Detect); Phencyclidine Screen Urine Not Detected (Not Detect)
[2022-06-05 02:00] VITALS: BP 102/58; PULSE 68; RESP 16; TEMP 36.6; O2SAT 98
[2022-06-05 02:03] LABS: COVID-19 Test Negative (Negative); IDNOW Serial# BCCEAD1C
[2022-06-05 02:10] LABS: Acetaminophen LAB < 17 mcg/mL (<30); Alanine Aminotransferase 12 U/L (0-31); Albumin Level 3.6 g/dL (3.5-5.0); Alkaline Phosphatase 65 U/L (39-117); Anion Gap 13 (12-20); Aspartate Amino Transferase 11 U/L (5-31); Bilirubin Total 0.3 mg/dL (0.0-1.0); Blood Urea Nitrogen 8 mg/dL (9-16); Calcium 9.5 mg/dL (8.4-10.2); Carbon Dioxide 25 mmol/L (22-29); Chloride 102 mmol/L (96-108); Creatinine Clr Calc Pharmacy 79.1; Estimated Glomerular Filt Rate > 60; Ethanol < 10 mg/dL; Glucose Random 108 mg/dL (60-115); HCG Quantitative < 2 mIU/mL; Magnesium 1.5 mg/dL (1.6-2.6); Potassium 4.5 mmol/L (3.3-5.1); Salicylate < 5.0 mg/dL (15-30); Sodium 135 mmol/L (135-145); Total Protein 6.2 g/dL (6.5-8.0)
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
[2022-06-05] MEDS: Atorvastatin Calcium 10 MG TABLET PO (11:05)
[2022-06-05] MEDS: Folic Acid 1 MG TABLET PO (11:05)
[2022-06-05] MEDS: OLANZapine 10 MG TABLET PO (11:05)
[2022-06-05] MEDS: Topiramate 100 MG TABLET PO (11:06)
[2022-06-05] MEDS: OLANZapine 2.5 MG TABLET PO (11:06)
[2022-06-05] MEDS: metFORMIN HCl ER 500 MG TAB.ER.24H 1000 MG PO (11:08)
[2022-06-05] MEDS: Divalproex Sodium 250 MG TABLET.DR 750 MG PO (11:09)
--- NOTE | 2022-06-05 11:09 | PHA.MEDREC ---
Pharmacy Consult ? Medication Reconciliation Pharmacy has completed the medication reconciliation. Pharmacy has reviewed the med rec done by Paul using list provided by senior care
[2022-06-05] MEDS: Propranolol HCL LA 60 MG CAP.SA.24H PO (11:17)
[2022-06-05 11:19] VITALS: BP 106/61; PULSE 87; RESP 15; TEMP 36.3; O2SAT 96
[2022-06-05] MEDS: clonazePAM 1 MG TABLET PO ×2 (11:19→11:21)
--- NOTE | 2022-06-05 14:43 | MHC.CARE ---
Patient evaluated by the CARE Team and does not need an inpatient hospitalization. correction staff will pick her up at 4:00pm Chemical Equipment Controller SHARON Bocanegra and ED provider Dr. Guzman both consulted and in agreement with plan.
[2022-06-05 16:01] VITALS: BP 125/94; PULSE 80; RESP 16; TEMP 36.1; O2SAT 98
--- NOTE | 2022-06-05 16:18 | PC.NURSE ---
Pt awaiting discharge to residential Home. Ate snacks. No dangerous behaviors noted.
[2022-06-06 08:14] LABS: HBS Num1 81.91 mIU/mL (0-7.99); HBc Num1 0.12 S/CO (0.00-0.79); HBsAGNum1 0.51 S/CO (0.00-0.99); HIV AB/AG Nonreactive (Nonreactive); Hepatitis A Antibody IgM 0.16 Index (0-0.79); Hepatitis B Core Antibody Nonreactive (Nonreactive); Hepatitis B Surface Antigen Negative (Negative); ~HepC Num1 0.22 S/CO (0.00-0.79); ~Hepatitis A Antibody IgM Nonreactive (Nonreactive); ~Hepatitis B Surface Antibody REACTIVE (Nonreactive); ~Hepatitis C Antibody Nonreactive (Nonreactive)
== END 2022-06-05 16:40 | disposition skilled nursing facility (03) ==
PROVIDERS: Physician Assistant; Emergency Provider Internal Medicine
DX: F33.1 Major depressive disorder, recurrent, moderate (principal); Z20.822 Contact with and (suspected) exposure to COVID-19; Z20.828 Contact with and (suspected) exposure to other viral communicable diseases; Z79.899 Other long term (current) drug therapy
CPT/HCPCS: 36415; 80053; 80143; 80179; 80307; 81001; 82077; 83735; 84702; 85025; 86704; 86706; 86709; 86803; 87340; 87389; 87635; 99285; S9485